=== PATIENT | male | born 1990 | race Two or more races ===

== ENCOUNTER → 2024-12-14 10:44 | Outpatient (REF) | payer OTHER, SELFPAY | LOC: MRI 10:44 | PROVIDERS: ATTENDING PHYSICIAN Nurse Practitioner Acute Care | DX: I42.8 Other cardiomyopathies (principal); I49.01 Ventricular fibrillation; I46.9 Cardiac arrest, cause unspecified; Z95.810 Presence of automatic (implantable) cardiac defibrillator | CPT/HCPCS: 71046; 75561; 75565; A9585 ==